=== PATIENT | male | born 1955 | race Caucasian/White ===

== ENCOUNTER 2018-10-06 04:53 | Emergency (ER) | payer OTHER ==
[~2018-10-06] VITALS: Ht 182.9 cm; Wt 100.2 kg
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
[2018-10-06] MEDS ORDERED: Isovue-300 100ml vial INJ PRN (05:15)
[2018-10-06] MEDS ORDERED: Albuterol ud Inhalation HHN ONE (05:15)
[2018-10-06] MEDS ORDERED: Ketorolac 30mg Inj IV ONE (05:15)
[2018-10-06] MEDS ORDERED: Ipratropium 0.02% Inh Soln 2.5ml UD HHN ONE (05:15)
[2018-10-06] MEDS ORDERED: Tetanus/Diptheria/Pertussis IM ONE (05:15)
[2018-10-06] MEDS ORDERED: fentaNYL 100 mcg/2 mL IV ONE (05:15)
--- NOTE | 2018-10-06 05:20 | NUR ---
ED Nurse Note: iv access established. blood collected; sent down to lab.
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
[2018-10-06 05:40] LABS: BASOPHILS % (AUTO) 1.5 % (0.0-2.0); HEMATOCRIT 50.6 % (42.0-52.0); HEMOGLOBIN 16.5 G/DL (14.2-18.0); LYMPHOCYTES % (AUTO) 19.1 % (20.0-45.0); MEAN CORPUSCULAR VOLUME 92 FL (80-99); MONOCYTES % (AUTO) 5.8 % (1.0-10.0); NEUTROPHILS % (AUTO) 67.7 % (45.0-75.0); PLATELET COUNT 296 K/UL (150-450); RED BLOOD COUNT 5.48 M/UL (4.70-6.10); RED CELL DISTRIBUTION WIDTH 13.5 % (11.6-14.8); WHITE BLOOD COUNT 13.6 K/UL (4.8-10.8)
--- NOTE | 2018-10-06 05:45 | NUR ---
ED Nurse Note: pt down to imaging.
[2018-10-06 05:52] LABS: ANION GAP 9 mmol/L (5-15); BLOOD UREA NITROGEN 13 mg/dL (7-18); CALCIUM 9.1 MG/DL (8.5-10.1); CARBON DIOXIDE 30 MMOL/L (21-32); CHLORIDE 98 MMOL/L (98-107); POTASSIUM 3.1 MMOL/L (3.5-5.1); SODIUM 137 MMOL/L (136-145)
[2018-10-06 05:54] LABS: INR 0.9 (0.9-1.1)
[2018-10-06 06:31] LABS: ALANINE AMINOTRANSFERASE 16 U/L (12-78); ALBUMIN 4.1 G/DL (3.4-5.0); ALBUMIN/GLOBULIN RATIO 1.2 (1.0-2.7); ALKALINE PHOSPHATASE 68 U/L (46-116); ASPARTATE AMINO TRANSFERASE 17 U/L (15-37); BILIRUBIN,TOTAL 0.6 MG/DL (0.2-1.0)
--- NOTE | 2018-10-06 06:44 | NUR ---
ED Nurse Note: pt back from imaging.
[2018-10-06 06:48] VITALS: BP 109/55
--- NOTE | 2018-10-06 07:07 | NUR ---
HAND-OFF: Report given to vincenzo velazquez. patient in stable condition. endorsed urine collection.
--- NOTE | 2018-10-06 07:12 | NUR ---
ED Nurse Note: patient received from Lenard Be RN. patient is alert awake breathing unlabored and even, resting comfortably. encouraged and reminded patient regarding UA. patient verbalized understanding.
[2018-10-06 07:18] VITALS: BP 103/63
[2018-10-06] MEDS ORDERED: Albuterol/Ipratropium 3ml neb HHN ONE (08:15)
[2018-10-06] MEDS ORDERED: Morphine Sulfate 4mg/ml Inj (IV USE ONLY) IVP ONE (08:15)
--- NOTE | 2018-10-06 08:26 | NUR ---
ED Nurse Note: patient is eating his breakfast as per Dr. Iglesias patient is ok to eat.
[2018-10-06 10:22] VITALS: BP 103/63
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
--- NOTE | 2018-10-06 10:53 | Diagnostic Imaging Report ---
Indication: Chest and abdominal pain. Trauma Technique: Continuous helical transaxial imaging of the chest, abdomen and pelvis was obtained from the thoracic inlet to the pubic symphysis. No IV contrast was administered. Coronal 2-D reformats were also obtained. Study obtained in a Siemens sensation [address] Total Dose length Product (DLP): 1761.[address] Dose Index Volume (CTDIvol): 25.05 mGy Comparison: None Findings: CT CHEST: There is no pneumothorax, evidence of a lung contusion or abnormal fluid accumulations, hematoma identified within the chest. There is a anterolateral fracture of the left seventh rib. There is no hematoma. Aorta is moderately calcified. Small nodes are in the mediastinum nonspecific. The heart is unremarkable. CT abdomen pelvis: Within the limitations of a noncontrast study, there are are no signs of the solid organ injury or acute injury within the abdomen. No free fluid identified. Moderate calcification of aorta demonstrated. Nonenhanced bowel appears unremarkable. There are small incidental bilateral inguinal hernias containing fat. Degenerative disease of the lumbar spine is some moderate to severe at L4-5 and L5-S1. There are bilateral nonobstructive stones within both kidneys. IMPRESSION: Acute left seventh rib fracture. No associated abnormalities. No evidence of acute injury in the abdomen or pelvis. No free fluid. Incidental findings including atherosclerotic disease, nonobstructive nephrolithiasis, moderate to severe degenerative disease of the lower lumbar spine, bilateral inguinal hernias containing fat. [facility] has communicated the preliminary results to the Emergency Department. Their findings are largely concordant with this report. The CT scanner at [facility] is accredited by the [employer] and the scans are performed using dose optimization techniques as appropriate to a performed exam including Automatic Exposure control.
--- NOTE | 2018-10-06 11:35 | Diagnostic Imaging Report ---
Indication: Neck pain. Technique: Continuous helical imaging of the cervical spine was obtained transaxially from the skull base to the upper thoracic spine. 2-D coronal and sagittal reformatted images were obtained. Automatic Exposure Control was utilized. Total Dose length Product (DLP): 412.[address] Dose Index Volume (CTDIvol): 20.35 mGy Comparison: None Findings: There is no acute fracture or malalignment identified. There is no soft tissue swelling identified. Mild uncovertebral arthritis is demonstrated at multiple levels. Some of the intervertebral discs show mild narrowing particularly at C5-6 C6-7.. Impression: No acute injury Mild spondylosis [facility] has communicated the preliminary results to the Emergency Department. Their findings are largely concordant with this report. The CT scanner at [facility] is accredited by the [employer] and the scans are performed using dose optimization techniques as appropriate to a performed exam including Automatic Exposure control.
--- NOTE | 2018-10-06 11:50 | Diagnostic Imaging Report ---
Indication: Facial orbital trauma pain Technique: Continuous helical transaxial imaging of the maxillofacial structures obtained without intravenous contrast administration. Coronal 2-D reformats were also obtained. Study obtained in a Siemens sensation [address] Automatic Exposure Control was utilized. Total Dose length Product (DLP): [address] Dose Index Volume (CTDIvol): 28.19, 0.15 mGy Comparison: None Findings: There is no evidence of an acute fracture. Paranasal sinuses and mastoids are clear. Soft tissues are unremarkable. IMPRESSION: No acute injury identified. [facility] has communicated the preliminary results to the Emergency Department. Their findings are largely concordant with this report. The CT scanner at [facility] is accredited by the [employer] and the scans are performed using dose optimization techniques as appropriate to a performed exam including Automatic Exposure control.
--- NOTE | 2018-10-06 11:51 | Diagnostic Imaging Report ---
Indication: Head trauma headache Technique: Contiguous 5 mm thick transaxial imaging of the head obtained in a Siemens Sensation [address] scanner[address] Soft tissue and bone windows generated. Automatic Exposure Control was utilized. Total Dose length Product (DLP): 1453.[address] Dose Index Volume (CTDIvol): 70.38 mGy Comparison: none Findings: The size and configuration of the cortical sulci, basal cisterns, and ventricles are within normal limits for age. There is no mass effect, midline shift, or edema identified. There is no evidence of acute hemorrhage or abnormal intra-axial or extra-axial fluid collections. The bones and soft tissues are unremarkable. Impression: No mass effect, edema or acute bleed. [facility] has communicated the preliminary results to the Emergency Department. Their findings are largely concordant with this report. The CT scanner at [facility] is accredited by the [employer] and the scans are performed using dose optimization techniques as appropriate to a performed exam including Automatic Exposure control.
== END 2018-10-06 10:22 | disposition short-term general hospital (02) ==
LOC: EDBD 04:53 → EMR 05:10
DX: S22.42XA Multiple fractures of ribs, left side, initial encounter for closed fracture (principal); R09.02 Hypoxemia; J44.9 Chronic obstructive pulmonary disease, unspecified; S09.90XA Unspecified injury of head, initial encounter; S06.0X9A Concussion with loss of consciousness of unspecified duration, initial encounter; Z23 Encounter for immunization; V43.52XA Car driver injured in collision with other type car in traffic accident, initial encounter; Y92.410 Unspecified street and highway as the place of occurrence of the external cause; F17.200 Nicotine dependence, unspecified, uncomplicated; I10 Essential (primary) hypertension
CPT/HCPCS: 36415; 70450; 70486; 71250; 72125; 74176; 80053; 85025; 85610; 85730; 90471; 90715; 93005; 94640; 94664; 96374; 96375; 99284; J1885; J2270; J2405; J3010; J7620; J8499